=== PATIENT | female | born 1965 | race Caucasian/White ===

== ENCOUNTER 2024-05-05 00:06 | Emergency (ER) | payer MEDICARE, MEDICAID ==
[~2024-05-05] VITALS: Ht 167.6 cm; Wt 90.8 kg
[2024-05-05 00:15] VITALS: TEMP 96.9
[2024-05-05 00:45] LABS: BASO % 0.5 % (0.0-1.0); EOS # 0.2 10^3/uL (0.0-0.5); EOS % 3.5 % (0.0-3.0); HEMATOCRIT 41.9 % (36.0-47.0); HEMOGLOBIN 14.5 g/dl (12.0-15.5); LYMPH # 1.9 10^3/uL (1.5-5.0); LYMPH % 28.9 % (24.0-44.0); MEAN CORPUSCULAR HEMOGLOBIN 30.2 pg (27.0-33.0); MEAN CORPUSCULAR HGB CONC 34.6 g/dl (32.0-36.5); MEAN CORPUSCULAR VOLUME 87.3 fl (80.0-96.0); MONO # 0.5 10^3/uL (0.0-0.8); MONO % 7.5 % (2.0-8.0); NEUTROPHILS # 3.9 10^3/uL (1.5-8.5); NEUTROPHILS % 59.3 % (36.0-66.0); PLATELET COUNT, AUTOMATED 211 10^3/uL (150-450); WHITE BLOOD COUNT 6.5 10^3/uL (4.0-10.0)
[2024-05-05] MEDS: PANTOPRAZOLE 40MG VIAL IV ONE (01:00)
[2024-05-05] MEDS: FAMOTIDINE 20MG/2ML VIAL IVP ONE (01:01)
[2024-05-05 01:06] LABS: CK-MB VALUE MASS < 1.0 NG/ML (<3.6)
[2024-05-05 01:08] LABS: BLOOD UREA NITROGEN 14 MG/DL (9-23); CALCIUM LEVEL 9.9 MG/DL (8.5-10.1); CARBON DIOXIDE LEVEL 30 MMOL/L (20-31); CHLORIDE LEVEL 106 MMOL/L (98-107); CPK CREATINE PHOSPHOKINASE 56 U/L (34-145); CREATININE FOR GFR 0.75 MG/DL (0.55-1.30); GLOMERULAR FILTRATION RATE > 60.0 (>51); GLUCOSE, FASTING 102 MG/DL (60-100); MB/CK RELATIVE INDEX 1.78 (< OR =4); POTASSIUM SERUM 4.2 MMOL/L (3.5-5.1); SODIUM LEVEL 142 MMOL/L (136-145)
[2024-05-05 01:39] LABS: CK-MB VALUE MASS < 1.0 NG/ML (<3.6); CPK CREATINE PHOSPHOKINASE 52 U/L (34-145); MB/CK RELATIVE INDEX 1.92 (< OR =4)
[2024-05-05] MEDS: METOCLOPRAMIDE INJ 10MG/2ML VIAL IV ONE (01:41)
[2024-05-05] MEDS: diphenhydrAMINE 50MG/ML VIAL IV STA (01:41)
[2024-05-05] MEDS: ACETAMINOPHEN 500 MG TAB PO ONE (01:43)
[2024-05-05 02:30] VITALS: BP 142/70; O2SAT 98
== END 2024-05-05 02:57 | disposition home or self-care (01) ==
LOC: M ED 00:06
DX: R07.89 Other chest pain (principal); I25.2 Old myocardial infarction; Z88.1 Allergy status to other antibiotic agents; Z88.2 Allergy status to sulfonamides; Z88.8 Allergy status to other drugs, medicaments and biological substances
CPT/HCPCS: 70450; 71045; 80048; 82550; 82553; 84484; 85025; 93005; 93041; 94760; 96374; 96375; 99284; J1200; J2470; J2765

== ENCOUNTER 2024-07-15 11:33 | Inpatient (IN) | payer MEDICARE, MEDICAID ==
[~2024-07-15] VITALS: Ht 167.6 cm; Wt 88.2 kg
[2024-07-15] MEDS ORDERED: INGR80CA PO (11:42)
[2024-07-15] MEDS ORDERED: LOSA50TA28 PO (11:42)
[2024-07-15] MEDS ORDERED: SIMV40TA20 PO (11:42)
[2024-07-15] MEDS ORDERED: BUSP10TA PO (11:42)
[2024-07-15] MEDS ORDERED: PROP10TA56 PO (11:42)
[2024-07-15 12:42] LABS: BASO % 0.2 % (0.0-1.0); EOS # 0.1 10^3/uL (0.0-0.5); EOS % 0.3 % (0.0-3.0); HEMATOCRIT 37.3 % (36.0-47.0); HEMOGLOBIN 12.2 g/dl (12.0-15.5); LYMPH # 1.5 10^3/uL (1.5-5.0); LYMPH % 9.9 % (24.0-44.0); MEAN CORPUSCULAR HEMOGLOBIN 28.6 pg (27.0-33.0); MEAN CORPUSCULAR HGB CONC 32.7 g/dl (32.0-36.5); MEAN CORPUSCULAR VOLUME 87.4 fl (80.0-96.0); MONO # 1.2 10^3/uL (0.0-0.8); MONO % 7.7 % (2.0-8.0); NEUTROPHILS # 12.5 10^3/uL (1.5-8.5); NEUTROPHILS % 80.9 % (36.0-66.0); PLATELET COUNT, AUTOMATED 336 10^3/uL (150-450); RED BLOOD COUNT 4.27 10^6/uL (4.00-5.40); WHITE BLOOD COUNT 15.4 10^3/uL (4.0-10.0)
[2024-07-15 13:07] LABS: LIPASE 23 U/L (12-53)
[2024-07-15 13:09] LABS: ALBUMIN 2.9 G/DL (3.2-5.2); ALKALINE PHOSPHATASE 147 U/L (35-104); ALT/SGPT 32 U/L (7.0-40); AST/SGOT 17 U/L (<34); BILIRUBIN,DIRECT 0.2 MG/DL (<0.4); BILIRUBIN,TOTAL 0.6 MG/DL (0.3-1.2); BLOOD UREA NITROGEN 16 MG/DL (9-23); CALCIUM LEVEL 9.1 MG/DL (8.5-10.1); CARBON DIOXIDE LEVEL 30 MMOL/L (20-31); CHLORIDE LEVEL 103 MMOL/L (98-107); CREATININE FOR GFR 0.93 MG/DL (0.55-1.30); GLOMERULAR FILTRATION RATE > 60.0 (>51); GLUCOSE, FASTING 119 MG/DL (60-100); SODIUM LEVEL 139 MMOL/L (136-145); TOTAL PROTEIN 6.7 G/DL (5.7-8.2)
[2024-07-15] MEDS ORDERED: ISOVUE-370 76% 100ML VIAL As Ordered ONE (15:24)
[2024-07-15 16:33] LABS: KETONE, URINE AUTO RFX NEGATIVE (NEGATIVE); LEUKOCYTE ESTERASE UR AUTO RFX 2+ (NEGATIVE); MUCUS, URINE RFX LARGE (NEGATIVE); NITRITE, URINE AUTO RFX POSITIVE (NEGATIVE); RBC, URINE AUTO RFX 1 /HPF (0-3); SQUAM EPITHELIAL CELL UR AURFX 5 /HPF (0-6); WBC, URINE AUTO RFX 86 /HPF (0-3)
[2024-07-15] MEDS ORDERED: HOME MED LIST COMPLETE! XX SCH (17:15)
[2024-07-15] MEDS ORDERED: NALOXONE INJ 0.4MG/1ML VIAL IV PRN (17:20)
[2024-07-15] MEDS: LACTOBACILLUS ACIDOPHILUS CAP (BACID) PO SCH (17:29)
[2024-07-15] MEDS: NS (Normal Saline) 0.9% 1,000 ML IV SCH (17:29)
[2024-07-15] MEDS: cefTRIAXone SOD 1 GM in DEXTROSE 5% (D5W) ADV/MINI-BAG 50 ML IV ONE (17:29)
[2024-07-15] MEDS: ONDANSETRON 4MG 2ML VIAL IV PRN (19:27)
[2024-07-15] MEDS: ACETAMINOPHEN 325 MG TAB PO PRN (19:35)
[2024-07-15] MEDS ORDERED: IPRATROPIUM 0.5MG/ALBUTEROL 2.5MG INH SOL UD 3ML (DUONEB) NEB PRN (19:50)
[2024-07-15] MEDS ORDERED: BISACODYL 10MG SUPP PR PRN (20:00)
[2024-07-15] MEDS ORDERED: MOM 30ML SUSPENSION UDC PO PRN (20:00)
[2024-07-15] MEDS ORDERED: SENOKOT S TAB PO PRN (20:00)
[2024-07-15 20:09] LABS: CK-MB VALUE MASS < 1.0 NG/ML (<3.6)
[2024-07-15 20:10] LABS: CPK CREATINE PHOSPHOKINASE 25 U/L (34-145)
[2024-07-15] MEDS: PIPERACILLIN/TAZOBACTAM SOD 4.5 GM in DEXTROSE 5% (D5W) ADV/MINI-BAG 50 ML IV SCH (20:32)
[2024-07-15] MEDS: SIMVASTATIN 40 MG TAB PO SCH (20:34)
[2024-07-15] MEDS: busPIRone 10 MG TAB PO SCH (20:34)
[2024-07-15] MEDS: PROPRANOLOL 10 MG TAB PO SCH (20:34)
[2024-07-15] MEDS: guaiFENesin ER TABLET 600 MG TAB PO SCH (20:34)
[2024-07-15 21:17] LABS: HEMOGLOBIN A1c 5.9 % (4.0-6.0)
[2024-07-15 21:53] VITALS: BP 107/50; TEMP 97.5; O2SAT 98
[2024-07-15] MEDS: PERCOCET 5MG/325MG TAB PO PRN (22:31)
[2024-07-16 04:10] VITALS: BP 114/58; TEMP 98.6; O2SAT 99
[2024-07-16 06:12] LABS: BASO % 0.2 % (0.0-1.0); EOS # 0.2 10^3/uL (0.0-0.5); EOS % 2.1 % (0.0-3.0); HEMATOCRIT 30.9 % (36.0-47.0); LYMPH # 0.9 10^3/uL (1.5-5.0); LYMPH % 11.3 % (24.0-44.0); MEAN CORPUSCULAR HEMOGLOBIN 28.9 pg (27.0-33.0); MEAN CORPUSCULAR HGB CONC 32.4 g/dl (32.0-36.5); MEAN CORPUSCULAR VOLUME 89.3 fl (80.0-96.0); MONO # 0.8 10^3/uL (0.0-0.8); MONO % 9.4 % (2.0-8.0); NEUTROPHILS # 6.2 10^3/uL (1.5-8.5); NEUTROPHILS % 75.8 % (36.0-66.0); PLATELET COUNT, AUTOMATED 273 10^3/uL (150-450); RED BLOOD COUNT 3.46 10^6/uL (4.00-5.40); WHITE BLOOD COUNT 8.1 10^3/uL (4.0-10.0)
[2024-07-16 06:34] LABS: BLOOD UREA NITROGEN 13 MG/DL (9-23); CALCIUM LEVEL 8.1 MG/DL (8.5-10.1); CARBON DIOXIDE LEVEL 30 MMOL/L (20-31); CHLORIDE LEVEL 104 MMOL/L (98-107); CREATININE FOR GFR 0.86 MG/DL (0.55-1.30); GLOMERULAR FILTRATION RATE > 60.0 (>51); GLUCOSE, FASTING 130 MG/DL (60-100); POTASSIUM SERUM 4.2 MMOL/L (3.5-5.1); SODIUM LEVEL 140 MMOL/L (136-145)
[2024-07-16 06:35] LABS: CHOLESTEROL RISK RATIO 5.45 (<5); HDL CHOLESTEROL 18.5 MG/DL (>40); LDL CHOLESTEROL 61.1 MG/DL (<100); NON-HDL-C 82.5 MG/DL
[2024-07-16 06:36] LABS: THYROID STIMULATING HORMONE 1.903 uIU/ML (0.55-4.78); THYROXINE (T4) 9.1 UG/DL (4.5-10.9)
[2024-07-16 06:39] LABS: FREE THYROXINE INDEX 3.9 % (1.3-4.8); T UPTAKE 43.4 % (22.5-37.0)
[2024-07-16] MEDS: PANTOPRAZOLE 40MG TAB (PROTONIX) PO SCH (10:03)
[2024-07-16 12:00] VITALS: BP 111/59; TEMP 97.3; O2SAT 95
[2024-07-16 20:10] VITALS: BP 110/57; TEMP 97.8; O2SAT 98
[2024-07-17 04:01] VITALS: BP 118/60; TEMP 98.1; O2SAT 98
[2024-07-17 06:28] LABS: BASO % 0.4 % (0.0-1.0); EOS # 0.2 10^3/uL (0.0-0.5); EOS % 2.1 % (0.0-3.0); HEMOGLOBIN 10.1 g/dl (12.0-15.5); LYMPH # 1.2 10^3/uL (1.5-5.0); LYMPH % 17.1 % (24.0-44.0); MEAN CORPUSCULAR HEMOGLOBIN 28.9 pg (27.0-33.0); MEAN CORPUSCULAR HGB CONC 32.6 g/dl (32.0-36.5); MEAN CORPUSCULAR VOLUME 88.8 fl (80.0-96.0); MONO # 0.6 10^3/uL (0.0-0.8); MONO % 8.7 % (2.0-8.0); NEUTROPHILS # 5.1 10^3/uL (1.5-8.5); NEUTROPHILS % 70.9 % (36.0-66.0); PLATELET COUNT, AUTOMATED 288 10^3/uL (150-450); RED BLOOD COUNT 3.49 10^6/uL (4.00-5.40); WHITE BLOOD COUNT 7.3 10^3/uL (4.0-10.0)
[2024-07-17 06:52] LABS: BLOOD UREA NITROGEN 9 MG/DL (9-23); CALCIUM LEVEL 8.4 MG/DL (8.5-10.1); CARBON DIOXIDE LEVEL 30 MMOL/L (20-31); CHLORIDE LEVEL 104 MMOL/L (98-107); CREATININE FOR GFR 0.93 MG/DL (0.55-1.30); GLOMERULAR FILTRATION RATE > 60.0 (>51); GLUCOSE, FASTING 123 MG/DL (60-100); POTASSIUM SERUM 4.1 MMOL/L (3.5-5.1); SODIUM LEVEL 141 MMOL/L (136-145)
[2024-07-17 08:35] VITALS: BP 109/55
[2024-07-17] MEDS: cefTRIAXone SOD 2 GM in DEXTROSE 5% (D5W) ADV/MINI-BAG 50 ML IV SCH (11:33)
[2024-07-17 12:00] VITALS: BP 124/68; TEMP 97.9; O2SAT 96
[2024-07-17 20:40] VITALS: BP 125/66; TEMP 97.7; O2SAT 98
[2024-07-18 04:00] VITALS: BP 122/64; TEMP 97.8; O2SAT 97
[2024-07-18 05:56] LABS: BASO % 0.1 % (0.0-1.0); EOS # 0.1 10^3/uL (0.0-0.5); EOS % 1.9 % (0.0-3.0); HEMATOCRIT 29.3 % (36.0-47.0); HEMOGLOBIN 9.7 g/dl (12.0-15.5); LYMPH # 1.4 10^3/uL (1.5-5.0); LYMPH % 21.1 % (24.0-44.0); MEAN CORPUSCULAR HEMOGLOBIN 28.9 pg (27.0-33.0); MEAN CORPUSCULAR HGB CONC 33.1 g/dl (32.0-36.5); MEAN CORPUSCULAR VOLUME 87.2 fl (80.0-96.0); MONO # 0.6 10^3/uL (0.0-0.8); MONO % 8.5 % (2.0-8.0); NEUTROPHILS # 4.6 10^3/uL (1.5-8.5); NEUTROPHILS % 67.8 % (36.0-66.0); PLATELET COUNT, AUTOMATED 293 10^3/uL (150-450); RED BLOOD COUNT 3.36 10^6/uL (4.00-5.40); WHITE BLOOD COUNT 6.7 10^3/uL (4.0-10.0)
[2024-07-18 06:16] LABS: BLOOD UREA NITROGEN 7 MG/DL (9-23); CALCIUM LEVEL 8.6 MG/DL (8.5-10.1); CARBON DIOXIDE LEVEL 30 MMOL/L (20-31); CHLORIDE LEVEL 105 MMOL/L (98-107); CREATININE FOR GFR 0.82 MG/DL (0.55-1.30); GLOMERULAR FILTRATION RATE > 60.0 (>51); GLUCOSE, FASTING 118 MG/DL (60-100); POTASSIUM SERUM 4.3 MMOL/L (3.5-5.1); SODIUM LEVEL 143 MMOL/L (136-145)
[2024-07-18 08:57] VITALS: BP 140/76
[2024-07-18] MEDS: PERCOCET 5MG/325MG TAB PO PRN (08:58)
[2024-07-18] MEDS ORDERED: CEFD300CAP PO (11:40)
[2024-07-18] MEDS ORDERED: PERCOCET PO (11:40)
[2024-07-18] MEDS ORDERED: RISATAB3 PO (11:40)
[2024-07-18 11:53] VITALS: BP 121/54; TEMP 96.8; O2SAT 96
[2024-07-18 14:17] LABS: ANA SCREEN, IFA NEGATIVE (NEGATIVE)
== END 2024-07-18 14:10 | disposition home or self-care (01) | DRG 690 ==
LOC: M ED 11:33 → M ED INP 17:08 → M MSPAV 21:45
PROVIDERS: ADMIT General Practice; ATTEND Internal Medicine Nephrology
PROC: B246ZZZ Ultrasonography of Right and Left Heart (ICD-10-PCS; principal; 2024-07-16)
DX: N10 Acute pyelonephritis (principal); I10 Essential (primary) hypertension; E78.00 Pure hypercholesterolemia, unspecified; J45.909 Unspecified asthma, uncomplicated; E66.9 Obesity, unspecified; K44.9 Diaphragmatic hernia without obstruction or gangrene; K21.9 Gastro-esophageal reflux disease without esophagitis; I70.0 Atherosclerosis of aorta; R05.3 Chronic cough; I73.9 Peripheral vascular disease, unspecified; N15.1 Renal and perinephric abscess; Z68.30 Body mass index [BMI] 30.0-30.9, adult; Z87.891 Personal history of nicotine dependence; Z79.899 Other long term (current) drug therapy; Z88.1 Allergy status to other antibiotic agents; Z88.2 Allergy status to sulfonamides; Z88.8 Allergy status to other drugs, medicaments and biological substances

== ENCOUNTER → 2024-08-21 | Outpatient (CLI) | payer MEDICARE, MEDICAID ==
[~2024-08-21] MED LIST: BUSP10TA PO; CEFD300CAP PO; FAMO20TA PO; INGR80CA PO; ISOVUE-370 76% 100ML VIAL As Ordered ONE; LOSA50TA28 PO; PERCOCET PO; PROP10TA56 PO; RISATAB3 PO; SIMV40TA20 PO
== END ==
LOC: M RAD 13:39
PROVIDERS: ATTEND Specialist
DX: C85.10 Unspecified B-cell lymphoma, unspecified site (principal)
CPT/HCPCS: 71260; 74177; Q9967

== ENCOUNTER 2025-03-20 02:57 | Emergency (ER) | payer MEDICARE, MEDICAID ==
[~2025-03-20] VITALS: Ht 167.6 cm; Wt 83.2 kg
[~2025-03-20 02:57] MED LIST changes: -ISOVUE-370 76% 100ML VIAL As Ordered ONE
[2025-03-20] MEDS ORDERED: BUSP10TA PO (03:24)
[2025-03-20 03:31] LABS: BASO # 0.0 10^3/uL (0.0-0.2); BASO % 0.5 % (0.0-1.0); EOS # 0.2 10^3/uL (0.0-0.5); EOS % 3.6 % (0.0-3.0); LYMPH # 2.0 10^3/uL (1.5-5.0); LYMPH % 29.9 % (24.0-44.0); MONO # 0.6 10^3/uL (0.0-0.8); MONO % 8.5 % (2.0-8.0); NEUTROPHILS # 3.8 10^3/uL (1.5-8.5); NEUTROPHILS % 57.2 % (36.0-66.0); PLATELET COUNT, AUTOMATED 221 10^3/uL (150-450)
[2025-03-20 04:01] LABS: CK-MB VALUE MASS 2.2 NG/ML (<3.6)
[2025-03-20 04:02] LABS: CPK CREATINE PHOSPHOKINASE 106.0 U/L (34-145); MB/CK RELATIVE INDEX 2.07 (< OR =4)
[2025-03-20 04:03] LABS: CALCIUM LEVEL 9.2 MG/DL (8.3-10.6); CARBON DIOXIDE LEVEL 27.0 MMOL/L (20-31); CHLORIDE LEVEL 104.0 MMOL/L (98-107); CREATININE FOR GFR 0.8 MG/DL (0.55-1.30); GLOMERULAR FILTRATION RATE 84.3 (>45); POTASSIUM SERUM 3.9 MMOL/L (3.5-5.1); SODIUM LEVEL 138.0 MMOL/L (136-145)
[2025-03-20 05:33] LABS: CK-MB VALUE MASS 2.0 NG/ML (<3.6)
[2025-03-20 05:36] LABS: CPK CREATINE PHOSPHOKINASE 90.0 U/L (34-145); MB/CK RELATIVE INDEX 2.22 (< OR =4)
[2025-03-20 05:49] VITALS: TEMP 97.1
[2025-03-20] MEDS ORDERED: ISOVUE-370 76% 100 ML VIAL As Ordered ONE (08:14)
[2025-03-20 09:00] VITALS: BP 154/74
[2025-03-20 09:30] VITALS: O2SAT 100
== END 2025-03-20 09:30 | disposition home or self-care (01) ==
LOC: M ED 02:57
DX: R07.9 Chest pain, unspecified (principal); E11.9 Type 2 diabetes mellitus without complications; I10 Essential (primary) hypertension; E78.5 Hyperlipidemia, unspecified; C85.90 Non-Hodgkin lymphoma, unspecified, unspecified site; Z87.891 Personal history of nicotine dependence; Z88.2 Allergy status to sulfonamides; Z88.1 Allergy status to other antibiotic agents; Z88.6 Allergy status to analgesic agent; Z88.8 Allergy status to other drugs, medicaments and biological substances; Z79.899 Other long term (current) drug therapy
CPT/HCPCS: 36415; 71045; 71275; 80048; 82550; 82553; 84484; 85025; 93005; 93041; 94760; 99285; Q9967